=== PATIENT | female | born 1950 | race Caucasian/White ===

== ENCOUNTER 2016-10-19 20:21 | Inpatient (IN) ==
[2016-10-19 22:08] LABS: MANUAL DIFF NEEDED? NO
[2016-10-19 22:17] LABS: BASO% 0.3 % (0.0-0.8); EOS% 1.3 % (0.0-10.0); HEMATOCRIT 35.5 % (37.0-47.0); LYMPH# 0.66 X1000 (1.2-3.4); LYMPH% 8.8 % (20.5-51.1); MCH 28.1 PG (27-31); MCHC 33.8 g/dL (33-37); MCV 83.1 FL (81-99); MONO# 0.64 X1000 (0.11-0.59); MONO% 8.5 % (1.7-9.3); NEUT% 81.1 % (42.2-75.2); PLT 124 X1000 (130-400); RBC 4.27 XMIL (4.2-5.4)
[2016-10-19 22:32] LABS: ALBUMIN 3.4 g/dL (3.5-5.0); CALCIUM 8.6 mg/dL (8.8-10.2); POTASSIUM 3.8 mmol/L (3.5-5.1); TOTAL BILIRUBIN 1.18 mg/dL (0.20-1.00); TOTAL PROTEIN 6.7 g/dL (6.3-8.3)
[2016-10-19] MEDS ORDERED: NS 1,000 ML IV ONE (22:46)
[2016-10-19] MEDS ORDERED: CLINDAMYCIN 600 MG/NS 600 MG/50 ML IVPB IV ONE (22:46)
[2016-10-19] MEDS ORDERED: MOTRIN PO ONE (22:47)
[2016-10-19] MEDS ORDERED: VANCOMYCIN 1 GM/NS 1 GM/250 ML IVPB IV ONE (22:48)
--- NOTE | 2016-10-20 00:40 | HISTORY AND PHYSICAL ---
PRIMARY CARE PHYSICIAN: Dr. Jase Jo. CHIEF COMPLAINT: Left breast rash. HISTORY OF PRESENTING ILLNESS: A 66-year-old female with a history of diabetes mellitus type 2 and hypertension, who presented to the emergency department with a 1-week history of having a rash and redness to her left breast region. She states that she went to her primary care provider, who put her on some antibiotics. However, she did not improve. Her rash started spreading and going to her back. She was evaluated in the ER, and the rash seemed consistent with cellulitis. Due to her failed outpatient treatment, it was thought that she would need hospitalization for further management. At the time of my examination, she denied any headache, fever, chills, chest pain, shortness of breath, hemoptysis, melena, weight changes, but complained of a rash on the left breast. The patient states that she may have had a spider bite to it about a week and a half ago. PAST MEDICAL HISTORY: Includes diabetes mellitus type 2 hypertension. PAST SURGICAL HISTORY: Hysterectomy, back surgery. ALLERGIES: Amoxicillin and oxycodone and hydrocodone. CURRENT MEDICATIONS: Listed in the MAR. SOCIAL HISTORY: She denies any history of smoking, alcohol, or illicit drug use. FAMILY HISTORY: No history of coronary artery disease. REVIEW OF SYSTEMS: Twelve point review of systems is listed as in HPI. Other systems negative. PHYSICAL EXAMINATION: GENERAL: Cooperative, friendly female. She is resting comfortably now. VITAL SIGNS: Temperature 100.2 degrees, pulse 88, respiration 14, blood pressure 137/55. She is saturating 100%. HEENT: Atraumatic, normocephalic. Extraocular movements intact. PERRLA. NECK: Supple. CHEST: Clear to auscultation. BREAST: There is moderate erythema and tenderness on the left breast. CARDIOVASCULAR: Regular rate and rhythm. ABDOMEN: Soft. Positive bowel sounds. EXTREMITIES: No edema. NEUROLOGIC: She is awake, alert, oriented x3. GENITOURINARY: No bladder distention. SKIN: Warm. LABORATORIES AND STUDIES: Sodium 134, potassium 3.8, chloride 98, CO2 is 21, BUN is 15, creatinine is 1.0, glucose is 339. WBC 7.5, hemoglobin 12.1, hematocrit 35.5, platelets 124. ASSESSMENT: A 66-year-old female with a history of hypertension, diabetes mellitus type 2, who presented to our emergency department with a 1-1/2 week history of having left breast rash and tenderness. She was evaluated in the ER, and it was consistent with cellulitis. Due to her failed outpatient treatment, it was thought that she would need hospitalization for further management. 1. Left breast cellulitis. 2. Diabetes mellitus type 2. 3. Hypertension. PLAN: 1. We will admit patient to medical floor with telemetry. 2. We will start patient on IV antibiotics. 3. We will monitor blood glucose and put patient on a sliding scale insulin regimen. 4. We will monitor blood pressure and resume antihypertensive agents. 5. We will put patient on DVT prophylaxis with SCDs. 6. We will continue to follow and reassess. cc: See Andrade MD
[2016-10-20] MEDS: NS 1,000 ML IV SCH ×3 (01:41→15:44)
[2016-10-20] MEDS ORDERED: TYLENOL PO PRN (02:03)
[2016-10-20] MEDS: RESTORIL PO PRN (02:24)
[2016-10-20] MEDS: ULTRAM PO PRN ×3 (03:25→18:34)
[2016-10-20 06:11] LABS: MANUAL DIFF NEEDED? NO
[2016-10-20 06:17] LABS: BASO% 0.1 % (0.0-0.8); EOS# 0.14 X1000 (0.0-0.7); EOS% 2.1 % (0.0-10.0); HEMATOCRIT 32.6 % (37.0-47.0); HEMOGLOBIN 11.2 g/dL (12.0-16.0); LYMPH# 0.98 X1000 (1.2-3.4); LYMPH% 14.5 % (20.5-51.1); MCH 28.4 PG (27-31); MCHC 34.4 g/dL (33-37); MCV 82.7 FL (81-99); MONO# 0.73 X1000 (0.11-0.59); MONO% 10.8 % (1.7-9.3); MPV 10.4 FL (7.4-10.4); NEUT% 72.5 % (42.2-75.2); PLT 120 X1000 (130-400); RBC 3.94 XMIL (4.2-5.4)
[2016-10-20 06:43] LABS: CALCIUM 8.4 mg/dL (8.8-10.2); POTASSIUM 3.8 mmol/L (3.5-5.1)
[2016-10-20] MEDS: HUMULIN R SUBQ SCH ×4 (07:05→21:36)
[2016-10-20] MEDS: CLINDAMYCIN 600 MG/NS 600 MG/50 ML IVPB IV SCH ×2 (10:51→16:58)
[2016-10-20] MEDS ORDERED: ROCEPHIN 1 GM/NS 1 GM/50 ML IVPB IV SCH (13:00)
--- NOTE | 2016-10-20 13:38 | PROGRESS NOTE ---
DATE: 10/20/2016 SUBJECTIVE: Ms. Estrella referred to have been bitten by possibly a spider a couple days ago and subsequently started developing some swelling in the left breast associated with fever. Presented yesterday, was evaluated and admitted due to failed outpatient therapy. OBJECTIVE: Vital signs: Blood pressure is 142/70, pulse of 83, respirations 18 , temperature 98.1. General: Ms. Estrella is a 66-year-old, female. She is in bed, not seemingly distressed. HEENT: Mucosa is pink and moist. Anicteric. Acyanotic. Neck: Supple. Chest: Clear. Cardiovascular: Regular rate and rhythm. Abdomen: Soft. Extremities : No pedal edema. GOLD BUYER: Patient is alert and oriented x4. There is no focal neurological deficit. Psychiatric: Patient has good insight and judgment of what is going on. Breasts: Left breast, there is a main area of skin breakdown at the lateral aspect of the breast, almost under the mid axillary line. The entire left breast is swollen, warm, tender, and there is a fluctuant nodulation at the breast in the of skin breakdown. Is oozing some purulent material. LABORATORY DATA: WBC is 6.76, hemoglobin is 11.3, platelet count of 120. Chemistry is reviewed. Completely unremarkable. Glucose is 168. CURRENT MEDICATIONS: Clindamycin, sliding scale insulin, temazepam. ASSESSMENT: 1. Sepsis secondary to skin and soft tissue infection. 2. Left mastitis with early abscess formation and drainage. 3. Diabetes mellitus. 4. Hypertension. PLAN: 1. The patient is currently on clindamycin which is a very good coverage for both gram-positives and anaerobes. Will add Rocephin for gram-negative coverage, since patient is diabetic we need to cover more broadly. Did not use vancomycin because patient had some renal issues before in 2013. 2. We will consult surgery to evaluate for possible I and D and also consult Infectious Disease to give us some guidance on antibiotics management. 3. The patient will have to be watched extremely carefully because at this age, inflammatory carcinoma is also a diagnostic option. However, taking into consideration the fact that she is suspected to have been bitten by some spider and the fact that she had fever, it all points to an infectious etiology and will address that for now. If surgery does I and D, will send sample for studies including cytology. cc: Martínez Fishman MD MTDD
--- NOTE | 2016-10-20 18:45 | CONSULTATION ---
DATE OF CONSULTATION: 10/20/2016 REQUESTING PHYSICIAN: Martínez Fishman MD. REASON FOR CONSULTATION: Left breast abscess. HISTORY OF PRESENT ILLNESS: A 66-year-old female with a history of diabetes mellitus type 2 presenting to the emergency department with a one week history of having a rash and redness to the left breast, it has extended and spread. She had seen her primary care physician and was started on antibiotics but it did not seem to improve. She was admitted because it was felt that she failed outpatient management for her cellulitis. Given the area and some drainage and fluctuance, I was asked to evaluate the patient for left breast abscess. She at this time has had no imaging but she is significantly tender over her left breast and lateral aspect extending into the axilla, essentially the lateral aspect of the breast has erythema noted to it. She does report she may had a spider bite approximately a week ago. PAST MEDICAL HISTORY: Diabetes mellitus type 2 and hypertension. PAST SURGICAL HISTORY: Hysterectomy and unspecified back surgery. ALLERGIES: Amoxicillin, hydrocodone and oxycodone. CURRENT MEDICATIONS: Reviewed from the MAR. SOCIAL HISTORY: Denies alcohol, tobacco or illicit drugs. FAMILY HISTORY: Reviewed with patient, noncontributory. REVIEW OF SYSTEMS: A full 10 point review of systems was obtained and negative except as specified in HPI. PHYSICAL EXAMINATION: Vital Signs: Patient is currently afebrile. Her vital signs are stable. General Examination: No acute distress. Alert, interactive, female, looks stated age. HEENT: Normocephalic, atraumatic. Pupils equal, round, reactive to light. Mucous membranes moist. Oropharynx benign. Neck: Supple. Trachea midline. Cardiovascular: Regular rate and rhythm. 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 Abdomen: Soft, nontender, nondistended. Extremities: Moves all extremities. Neurologic: Grossly intact. Skin: Erythema as noted above. Vascular: All extremities perfused. LABORATORY: Patient's white blood cell count was 6.7, hematocrit 32, platelet count 120,000. Remainder of labs reviewed. Microbiology from the wound is still pending. ASSESSMENT AND PLAN: A 66-year-old female with left breast abscess. 1. Left breast abscess: At this time we will plan on surgical intervention. We will take the patient to the operating room in the morning. I discussed with patient the risks, benefits and alternatives for surgery. We will obtain consent. She is on antibiotics. We will get cultures from the wound. 2. Multiple medical comorbidities currently being managed by the hospitalist service. 3. I appreciate the consultation. I will continue to follow the patient with you. cc: Rehan Valentine MD
[2016-10-20] MEDS ORDERED: CATAPRES PO PRN (20:19)
[2016-10-20] MEDS: GLUCOPHAGE PO SCH (21:36)
[2016-10-20] MEDS: HYDROXYZINE PO SCH (21:36)
[2016-10-20] MEDS: ZANAFLEX PO SCH (21:37)
[2016-10-21] MEDS: CLINDAMYCIN 600 MG/NS 600 MG/50 ML IVPB IV SCH (01:33)
[2016-10-21] MEDS: NS 1,000 ML IV SCH ×2 (01:33→19:26)
[2016-10-21] MEDS: HYDROXYZINE PO SCH ×4 (01:35→21:39)
[2016-10-21] MEDS: ULTRAM PO PRN ×2 (02:09→11:47)
[2016-10-21] MEDS: ZANAFLEX PO SCH ×3 (03:40→21:39)
[2016-10-21 05:42] LABS: MANUAL DIFF NEEDED? NO
[2016-10-21 05:57] LABS: BASO% 0.2 % (0.0-0.8); EOS# 0.17 X1000 (0.0-0.7); HEMATOCRIT 35.6 % (37.0-47.0); LYMPH% 19.2 % (20.5-51.1); MCH 27.5 PG (27-31); MCHC 33.7 g/dL (33-37); MCV 81.5 FL (81-99); MONO# 0.49 X1000 (0.11-0.59); MONO% 8.5 % (1.7-9.3); MPV 10.4 FL (7.4-10.4); NEUT% 69.1 % (42.2-75.2); PLT 180 X1000 (130-400); RBC 4.37 XMIL (4.2-5.4)
[2016-10-21] MEDS: INVOKANA PO SCH (06:12)
[2016-10-21] MEDS: HUMULIN R SUBQ SCH ×4 (06:13→21:42)
[2016-10-21 06:18] LABS: CALCIUM 8.7 mg/dL (8.8-10.2); POTASSIUM 4.5 mmol/L (3.5-5.1)
--- NOTE | 2016-10-21 06:25 | PROGRESS NOTE ---
DATE: 10/21/2016 SUBJECTIVE: Patient doing okay. Did have some pain through the evening, but otherwise doing okay. OBJECTIVE: Vital Signs: Patient is currently afebrile. Her vital signs are stable. General: No acute distress. Breast: Exam unchanged with erythema noted still to the left breast. Cardiovascular: Regular rate and rhythm. Lungs: Grossly clear. Abdomen: Soft, nontender, nondistended. Extremities: Moves all extremities. Neurologic: Grossly intact. Skin: No signs of jaundice. Vascular: All extremities perfused. LABORATORY: White blood cell count 5. ASSESSMENT/PLAN: A 66-year-old, female with left breast abscess Left breast abscess. At this time, we will plan on surgical intervention this morning. Discussed with her the risks, benefits, alternatives. We will drain this abscess. cc: Rehan Valentine MD
[2016-10-21] MEDS ORDERED: VANCOMYCIN IV PER PHARMACY MISC SCH (08:45)
[2016-10-21] MEDS: NEXIUM PO SCH ×2 (08:52→11:47)
[2016-10-21] MEDS: HYZAAR 50/12.5 MG PO SCH ×2 (08:52→11:46)
[2016-10-21] MEDS: NEURONTIN PO SCH ×3 (08:52→18:20)
[2016-10-21] MEDS: GLUCOPHAGE PO SCH ×3 (08:52→21:40)
[2016-10-21] MEDS: CYMBALTA PO SCH ×2 (08:53→11:45)
[2016-10-21] MEDS ORDERED: DUONEB (A & A) INH ONE (09:50)
[2016-10-21] MEDS ORDERED: VANCOMYCIN 1,450 MG in NS 250 ML IV ONE (10:00)
[2016-10-21] MEDS ORDERED: VANCOMYCIN 1,500 MG in NS 250 ML IV ONE (10:00)
[2016-10-21] MEDS ORDERED: DILAUDID ONE (10:05)
--- NOTE | 2016-10-21 10:26 | CONSULTATION ---
DATE OF CONSULTATION: 10/21/2016 CONCLUSION: The patient has developed a chest abscess, which extends into her left breast. It started with a bite according to the patient on the left side of her chest by some insect, although she did not actually see the insect. A Gram stain taken from the drainage from the abscess shows gram-positive cocci. The first reading of the blood cultures are negative. RECOMMENDATIONS: I have discontinued Rocephin and clindamycin and placed the patient on vancomycin pending culture results. If the abscess turns out to be a an oxacillin-sensitive Staph aureus, then I would switch the patient to Ancef 2 g IV every 8 hours. If the abscess turns out to be methicillin-resistant Staph aureus, then I would just continue with vancomycin. Earlier I discontinued the patient's Rocephin and clindamycin. DISCUSSION: As mentioned above, patient believes approximately 8 days ago she was bitten by some insect in the left chest area. The area has become more erythematous, indurated , tender, painful and has purulent drainage. Gram stain of the drainage shows gram-positive cocci. The patient thinks that since she has been receiving antibiotics she is feeling better. It is my understanding that today she is scheduled to have the abscess drained. Laboratory data thus far show a CBC with a white count of 5740, hemoglobin 12, platelet count 180,000. Creatinine is 1.0. The GFR is 56. Blood cultures are negative. 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 She has had a hysterectomy. PREVIOUS HOSPITALIZATIONS AND OPERATION: She has had 2 labor and deliveries, a hysterectomy, and bilateral carpal tunnel surgery. MEDICAL DISEASES: Positive for diabetes mellitus and hypertension. INFECTIOUS DISEASE HISTORY: Positive for UTI. FAMILY HISTORY: Positive for diabetes mellitus and hyperlipidemia. SOCIAL HISTORY: The patient lives in [place]. She does not smoke cigarettes , drink alcoholic beverages or abuse drugs. She is . She lives with her sister. The sister has a dog as a pet. The patient works in a [employer]. ALLERGIES: The patient states that she is allergic to amoxicillin manifested by oral ulcers. It should be noted that the patient since being in the hospital is on Rocephin and tolerating it well. The patient also has tolerated PO Keflex in the past. REVIEW OF SYSTEMS: Eyes and ears: She denies difficulty hearing or seeing. Neck: No meningismus. Respiratory: No cough or shortness of breath. Chest: See present illness for description of the abscess on the chest wall. GI: No nausea, vomiting, or diarrhea. Genitourinary: No dysuria or flank pain. Bones, joints, muscles: No joint swelling or myalgias. The remainder of the patient's review of systems was completed and was negative. HISTORY OF PRESENT ILLNESS: The patient's lab studies show a CBC with a white count of 5740, hemoglobin 12, platelet count 180,000. Creatinine is 1. GFR is 56. Liver function studies are normal. Gram stain from the patient's abscess showed gram-positive cocci. Blood cultures thus far are sterile. Patient does not smoke cigarettes, drink alcoholic beverages or abuse drugs. HOME MEDICATIONS: 1. Tramadol. 2. Tizanidine. 3. Glucophage/hydrochlorothiazide. 4. Hydroxyzine. 5. Gabapentin. 6. Nexium. 7. Cymbalta. 8. Clindamycin. 9. Invokana. PHYSICAL EXAMINATION: Vital Signs: Temperature is 98.2 degrees, pulse 79, respirations 18, blood pressure 156/64. Patient weighs 160 pounds. General: Generally this is a somewhat ill- appearing, middle-aged female. She is in no acute distress. She does say, however, she has pain in the left chest where the abscess started. Head, eyes, ears, nose, and throat: She can hear my spoken words and see near objects. No drainage noted from the nose or ears. Neck: No meningismus. Lungs: Clear to auscultation. Cardiovascular: Regular heart rate. Chest: The patient has an erythematous, tender, fluctuant area on the left chest which is draining purulent fluid. Abdomen: Soft without masses or tenderness. Neurologic: The patient can move her extremities. There is no tremor. Integument: No rash noted. cc: Lewis Rainey MD MTDD
[2016-10-21] MEDS ORDERED: LR 500 ML ONE (10:27)
--- NOTE | 2016-10-21 12:42 | OPERATIVE NOTE ---
PROCEDURE DATE: 10/21/2016 PREOPERATIVE DIAGNOSIS: Left breast abscess. POSTOPERATIVE DIAGNOSIS: Left breast abscess. PROCEDURE PERFORMED: Incision and drainage of left breast abscess. SURGEON: Rehan Valentine MD WELL LOGGING CAPTAIN MUD ANALYSIS: None. ANESTHESIA: General endotracheal. SPECIMENS: Culture sent. ESTIMATED BLOOD LOSS: 20 mL. HISTORY: The patient is a 66-year-old female, presenting with abscess to her left breast. It was felt the patient would benefit from incision and drainage. The risks, benefits, and alternatives were discussed. All questions were answered. INTRAOPERATIVE FINDINGS: Area of abscess tracked significantly along the lateral aspect of the left breast into the axilla, tracking more than 10 cm. We had to make a counterincision to accommodate the significant amount of purulence. DESCRIPTION OF PROCEDURE: After informed consent was obtained, the patient was brought to the operating theatre, transferred to the operating table, and placed in supine position. General orotracheal anesthesia was then performed without complication. A formal time-out was then performed, confirming patient, date, procedure, and side. All were in agreement. At that time, attention was given to the left breast. After it was prepped and draped, we turned our attention to it. We made a secretion incision over the more medial aspect and encountered purulence, which we sent for culture. We probed the area blood bluntly and broke up all loculations. The area tracked medially, approximately 6 cm, and tracked laterally a significant way. There was also a 2nd area more laterally in the axilla that we also opened up with a cruciate incision to drain it as a counterincision. We encountered purulence there. We irrigated out both sides. There was friable, slightly bleeding tissue noted in the wound. We packed it with 1/2-inch iodoform. We placed a sterile dressing. The patient tolerated the procedure well and was transferred back to the recovery room in stable condition. Postoperatively, we will continue with antibiotics and follow up with culture. cc: Rehan Valentine MD
[2016-10-21] MEDS ORDERED: DIPRIVAN 1% ONE (15:57)
[2016-10-21] MEDS: MORPHINE IV PRN ×2 (16:38→21:40)
--- NOTE | 2016-10-21 17:17 | PROGRESS NOTE ---
DATE: 10/21/2016 SUBJECTIVE: Ms. Estrella feels much better after the surgery. She went to the OR today and they did an I and D of the left breast abscess, at this moment this patient is stable, tolerating p.o. and completely alert and oriented times x3. OBJECTIVE: Vital Signs: Temperature 99.1 degrees, pulse 99, blood pressure 141/52, respiratory rate 16, O2 saturation 99 on room air. HEENT: Head normocephalic. No trauma. PERRLA. Neck: Supple. No JVD. No masses. Central trachea. Chest: She has a clean dressing at the level of the left breast and lateral portion of the thorax, she came from surgery today. No signs of bleed. No pain at this moment. Cardiovascular: RRR. No murmurs. Chest: Clear to auscultation. No wheezing. No rales. Abdomen: Soft, nontender, nondistended. No hepatosplenomegaly. Extremities: No edema. No clubbing. No cyanosis. Neurological: The patient is alert and oriented x3. No focal neurological deficits. LABORATORY: WBC 5.7, hemoglobin 12, hematocrit 35.6, platelet 180,000. Sodium 143, potassium 4.5, chloride 106, bicarbonate 21, BUN 13, creatinine 1, glucose 145, calcium 8.7. ASSESSMENT AND PLAN: 1. Left mastitis with abscess formation status post incision and drainage. This patient went to surgery today and now she is back in the room, she is not complaining of any specific problem at this moment. I adjusted her pain medications. 2. Type 2 diabetes. Will continue with the same management for now. Stable. 3. Hypertension stable. Continue with the same management at this moment. 4. Deep vein thrombosis prophylaxis. I will start this patient on Lovenox. cc: Tristin Guardado MD
[2016-10-21] MEDS ORDERED: TUMS EXTRA STRENGTH PO PRN (21:21)
[2016-10-22] MEDS: NS 1,000 ML IV SCH ×2 (03:33→15:35)
[2016-10-22] MEDS: ZANAFLEX PO SCH ×2 (03:33→14:02)
[2016-10-22] MEDS: HYDROXYZINE PO SCH ×3 (03:33→15:35)
[2016-10-22] MEDS: MORPHINE IV PRN ×4 (03:41→15:35)
[2016-10-22 05:42] LABS: MANUAL DIFF NEEDED? NO
[2016-10-22 06:00] LABS: BASO% 0.2 % (0.0-0.8); EOS# 0.18 X1000 (0.0-0.7); EOS% 4.4 % (0.0-10.0); HEMATOCRIT 32.3 % (37.0-47.0); HEMOGLOBIN 10.8 g/dL (12.0-16.0); IMM GRAN# 0.02 X1000 (0.0-0.04); IMM GRAN% 0.5 % (0.0-0.5); LYMPH# 0.85 X1000 (1.2-3.4); LYMPH% 20.7 % (20.5-51.1); MCH 27.8 PG (27-31); MCHC 33.4 g/dL (33-37); MCV 83.2 FL (81-99); MONO% 9.8 % (1.7-9.3); MPV 10.6 FL (7.4-10.4); NEUT% 64.4 % (42.2-75.2); PLT 151 X1000 (130-400); RBC 3.88 XMIL (4.2-5.4)
[2016-10-22 06:16] LABS: AGAP 14; BUN 11 mg/dL (8-22); CALCIUM 8.6 mg/dL (8.8-10.2); CHLORIDE 102 mmol/L (98-107); COSMO 282; SODIUM 140 mmol/L (136-145); TCO2 24 mmol/L (25-35)
[2016-10-22] MEDS: PERIDEX MT SCH ×2 (06:31→09:19)
--- NOTE | 2016-10-22 06:48 | PROGRESS NOTE ---
DATE: 10/22/2016 SUBJECTIVE: Patient doing okay. No major issues. She tolerated the procedure well. OBJECTIVE: Vital Signs: Patient is currently afebrile. Her vital signs are stable. General Examination: No acute distress. Cardiovascular: Regular rate and rhythm. Lungs: Grossly clear. Chest: The left breast erythema is improved. Packing removed. Wound okay. ASSESSMENT AND PLAN: A 66-year-old, female, status post incision and drainage of left breast abscess. The patient is clinically doing well. We would like to recheck her wound in the next 24 hours. At that point, can be discharged from a surgical point of view. cc: Rehan Valentine MD
[2016-10-22] MEDS: INVOKANA PO SCH (06:51)
[2016-10-22] MEDS: HUMULIN R SUBQ SCH ×3 (06:53→16:17)
[2016-10-22] MEDS: CYMBALTA PO SCH (09:19)
[2016-10-22] MEDS: LOVENOX SUBQ SCH (09:20)
[2016-10-22] MEDS: NEURONTIN PO SCH ×3 (09:24→16:18)
[2016-10-22] MEDS: GLUCOPHAGE PO SCH (09:25)
[2016-10-22] MEDS: HYZAAR 50/12.5 MG PO SCH (09:25)
[2016-10-22] MEDS: NEXIUM PO SCH (09:25)
--- NOTE | 2016-10-22 11:52 | PROGRESS NOTE ---
DATE: 10/22/2016 SUBJECTIVE: This patient states that she is feeling much better. She is still complaining of mild pain at the level of the left breast and left thoracic area where the wound is. She denies nausea, vomiting, diarrhea, constipation. No shortness of breath. No abdominal pain. OBJECTIVE: Vital Signs: Temperature 98.8 degrees, pulse 79, respiratory rate 16, blood pressure 115/50, oxygen saturation 96% on room air. HEENT: Head normocephalic. No trauma. PERRLA. Neck: Supple. No JVD. No masses. Central trachea. Chest: Clear to auscultation. No wheezing. No rales. She has an incision at the level of the left thoracic area close to the breast that was done a couple of days ago to do an I and D. That looks very good, just mild serosanguineous secretion but no pus. Mild tenderness to palpation. Abdomen: Soft, nontender, nondistended. No hepatosplenomegaly. Cardiovascular: RRR. Extremities: No edema. No clubbing. No cyanosis. Neurological Examination: The patient is alert and oriented x3. No focal neurological deficits. Diagnostic Data: Wound/abscess culture positive for MRSA. Laboratory: WBC 4.1, hemoglobin 10.8, hematocrit 32.3, platelets 151,000. Sodium 140, potassium 4, chloride 102, bicarbonate 24, BUN 11, creatinine 0.9, glucose 159, calcium 8.6. ASSESSMENT AND PLAN: 1. Left mastitis with abscess formation, status post incision and drainage. This patient went to surgery yesterday. She is looking good. She is complaining of mild pain at the level of the wound but the pain compared with admission is much better. 2. Type 2 diabetes. Continue with the same management for now. 3. Hypertension, stable. Continue with the same management. 4. Deep venous thrombosis prophylaxis. Continue Lovenox. 5. This patient was evaluated by the surgery department. They will recheck this patient again tomorrow and probably they will sign off. Since this patient has methicillin-resistant Staphylococcus aureus, we need to talk to the infectious disease department to see what is the plan. cc: Tristin Guardado MD
[2016-10-22] MEDS: VANCOMYCIN 1 GM/NS 1 GM/250 ML IVPB IV SCH (12:08)
[2016-10-23] MEDS: PERIDEX MT SCH ×2 (00:32→09:10)
[2016-10-23] MEDS: ZANAFLEX PO SCH ×2 (00:33→08:23)
[2016-10-23] MEDS: RESTORIL PO PRN (00:33)
[2016-10-23] MEDS: HYDROXYZINE PO SCH ×3 (00:34→11:00)
[2016-10-23] MEDS: GLUCOPHAGE PO SCH ×2 (00:34→09:09)
[2016-10-23] MEDS: MORPHINE IV PRN ×2 (00:37→08:11)
[2016-10-23] MEDS: HUMULIN R SUBQ SCH ×3 (00:43→11:34)
[2016-10-23] MEDS: NS 1,000 ML IV SCH (04:56)
[2016-10-23 05:39] LABS: MANUAL DIFF NEEDED? NO
[2016-10-23 05:44] LABS: BASO% 0.5 % (0.0-0.8); EOS# 0.19 X1000 (0.0-0.7); EOS% 4.8 % (0.0-10.0); HEMATOCRIT 32.1 % (37.0-47.0); HEMOGLOBIN 10.7 g/dL (12.0-16.0); IMM GRAN# 0.03 X1000 (0.0-0.04); IMM GRAN% 0.8 % (0.0-0.5); LYMPH# 1.01 X1000 (1.2-3.4); LYMPH% 25.3 % (20.5-51.1); MCH 27.8 PG (27-31); MCHC 33.3 g/dL (33-37); MCV 83.4 FL (81-99); MPV 9.8 FL (7.4-10.4); NEUT% 58.6 % (42.2-75.2); PLT 179 X1000 (130-400); RBC 3.85 XMIL (4.2-5.4)
[2016-10-23 06:30] LABS: AGAP 16; ALBUMIN 3.1 g/dL (3.5-5.0); ALKALINE PHOSPHATASE 82 U/L (32-104); BUN 11 mg/dL (8-22); CALCIUM 8.9 mg/dL (8.8-10.2); CHLORIDE 106 mmol/L (98-107); COSMO 288; GOT 18 U/L (10-30); GPT 14 U/L (10-36); POTASSIUM 3.9 mmol/L (3.5-5.1); SODIUM 143 mmol/L (136-145); TCO2 21 mmol/L (25-35); TOTAL BILIRUBIN 0.61 mg/dL (0.20-1.00)
--- NOTE | 2016-10-23 06:32 | PROGRESS NOTE ---
DATE: 10/23/2016 SUBJECTIVE: Patient doing okay. No major issues. OBJECTIVE: Vital Signs: Patient is currently afebrile. Her vital signs are stable. General: No acute distress. Cardiovascular: Regular rate and rhythm. Lungs: Grossly clear. Left breast: Erythema is improved wound okay. ASSESSMENT/PLAN: A 66-year-old female status post incision and drainage of the left breast abscess. The patient is clinically doing well with incision and drainage. I think she can be discharged home. She is growing Staph species and I suspect she can probably be transitioned over to p.o. antibiotics. It looks like she is sensitive to Bactrim. Likely my recommendation will be to defer to Dr. Rainey. Again patient is likely a candidate for discharge today. cc: Rehan Valentine MD
[2016-10-23 07:41] VITALS: BP 149/73
[2016-10-23] MEDS: INVOKANA PO SCH (08:07)
--- NOTE | 2016-10-23 08:22 | PROGRESS NOTE ---
DATE: 10/23/2016 PRESENT ILLNESS: The patient is status post drainage of a methicillin- resistant Staph aureus chest wall abscess. The drainage was performed by Dr. Valentine. MEDICATIONS: The patient is receiving vancomycin. PHYSICAL EXAMINATION: Vital Signs: Temperature is 98.6 degrees, pulse 93, respirations 12, blood pressure 149/73. General: This is a fairly healthy-appearing elderly female who is in no acute distress. Lungs: Clear to auscultation. Cardiovascular: Regular heart rate. Abdomen: Soft and nontender. Chest: The patient has a large erythematous area on the upper part of the chest extending to the to the patient's side. The area has been drained it is erythematous and tender. There is purulent drainage coming from the wound. LAB AND X-RAY: The CBC today shows a white count of 3990, hemoglobin 10.7, and platelet count 179,000, creatinine 0.9. The GFR is greater than 60. The wound culture is growing methicillin- resistant Staph aureus. ASSESSMENT AND PLAN: Both Dr. Valentine and I feel like the patient could go home today. I have produced a prescription for Septra to take 1 double-strength tablet every 12 hours for 15 days. I have requested that the patient see me in the office in 2 weeks, and then if the wound looks good, we maybe can stop the Septra. COMORBIDITIES: Patient's comorbidity is that she is diabetic. cc: Lewis Rainey MD [facility]
[2016-10-23] MEDS: NEXIUM PO SCH (09:09)
[2016-10-23] MEDS: HYZAAR 50/12.5 MG PO SCH (09:09)
[2016-10-23] MEDS: NEURONTIN PO SCH (09:09)
[2016-10-23] MEDS: LOVENOX SUBQ SCH (09:10)
[2016-10-23] MEDS: CYMBALTA PO SCH (09:10)
[2016-10-23] MEDS ORDERED: XYLOCAINE-MPF 2% ONE (10:11)
[2016-10-23] MEDS ORDERED: LR 1,000 ML ONE (10:12)
[2016-10-23] MEDS: VANCOMYCIN 1 GM/NS 1 GM/250 ML IVPB IV SCH (10:50)
--- NOTE | 2016-10-24 07:34 | DISCHARGE SUMMARY ---
ADMISSION DATE: 10/19/2016 DISCHARGE DATE: 10/23/2016 CONSULTATIONS: 1. Dr. Rehan Valentine with general surgery. 2. Dr. Lewis Rainey with infectious disease. PERTINENT PROCEDURES: Incision and drainage of the left breast abscesses by Dr. Rehan Valentine. DISCHARGE DIAGNOSES: 1. Status post incision and drainage of methicillin-resistant Staphylococcus aureus chest wall abscess 2. Diabetes mellitus type 2. 3. Hypertension HOSPITAL COURSE: Ms. Estrella is a 66-year-old female with a history of diabetes mellitus type 2 and hypertension who presented to the ED with a 1-week history of a rash and redness to her left breast region. She went to her primary care physician, who is Dr. Jo. She was placed on some antibiotics. However, she did not improve. Her rash started to spread. It started going to her back. She was evaluated in the ED. Rash seemed consistent with cellulitis. Due to her failed outpatient treatment, the patient was admitted to the hospital. Started on IV antibiotics with a consult with infectious disease as well as general surgery. The patient underwent an I and D with Dr. Rehan Valentine. Her culture started growing out gram positive cocci. Dr. Rainey switched her antibiotics to vancomycin. Final culture was MRSA. Both Dr. Valentine and Dr. Rainey felt that the patient could go home on p.o. antibiotics with Sept and follow up with Dr. Rainey in 2 weeks. VITAL SIGNS: Temperature is 98.6 degrees, heart rate 93, respirations 12, blood pressure is 149/73, O2 is 99% on room air. DISCHARGE DIET: Diabetic. DISCHARGE MEDICATIONS: 1. Invokana 300mg oral daily 2. Precedex 15 mL b.i.d. 3. Clonidine 0.1 mg p.o. t.i.d. p.r.n. 4. Cymbalta 60 mg p.o. daily. 5. Nexium 40 mg p.o. daily. 6. Neurontin 400 mg p.o. t.i.d. 7. Hydroxyzine pamoate 25 mg p.o. q.6 hours. 8. Hyzaar 100/25 mg tablet 1 each p.o. daily. 9. Glucophage 1000 mg p.o. b.i.d. 10. Septra DS 1 each p.o. b.i.d. 11. Ultram 50 mg p.o. q.6 hours p.r.n. 12. Tizanidine HCL 2 mg p.o. q.8 hours. FOLLOWUP: The patient is being discharged home with p.o. antibiotics. She will follow up with Dr. Valentine on 10/30/[address] Lewis Rainey on 11/06/2016, as well as her primary care physician, Dr. Jase Jo, in 7-10 days. Patient can return to the ED for any worsening of symptoms. Discharge time was 30 minutes. Dictated by YESSY Lindsay for Sole Gonzalez MD cc: Sole Gonzalez MD MTDD
--- NOTE | 2016-11-08 20:42 | PROVIDER DOCUMENTATION ---
This chart was entered by Donna Valdez Scribe, acting as scribe for Haider Oneill PA. HPI-Rash/Wound/ReCheck - General Chief Complaint: Abscess Stated Complaint: LARGE BITE ON LEFT SIDE Time Seen by Provider: 10/19/16 20:43 Source: patient Allergies/Adverse Reactions: Allergies Allergy/AdvReac Type Severity Reaction Status Date / Time amoxicillin [Amoxicillin] Allergy ITCHING Verified 10/20/16 00:44 hydrocodone Allergy ITCHING Verified 10/20/16 00:44 oxycodone [Oxycodone] Allergy ITCHING Verified 10/20/16 00:44 Home Medications: Home Medication List Medication Instructions Recorded Confirmed Last Taken Type Esomeprazole [Nexium] 40 mg PO DAILY 01/20/14 10/20/16 10/19/16 History Gabapentin [Neurontin] 400 mg PO TID 01/20/14 10/20/16 10/19/16 History Losartan/Hydrochlorothiazide 100 mg PO DAILY 01/20/14 10/20/16 10/19/16 History [Hyzaar 100-25 Tablet] Metformin [Glucophage] 1,000 mg PO BID 01/20/14 10/20/16 10/19/16 History Canagliflozin [Invokana] 300 mg PO ACB 11/10/15 10/20/16 10/19/16 History Duloxetine [Cymbalta] 60 mg PO DAILY 11/10/15 10/20/16 10/19/16 History Tizanidine HCl 2 mg PO Q8H 11/10/15 10/20/16 10/19/16 History Tramadol HCl 50 mg PO Q6H PRN PRN 11/10/15 10/20/16 10/19/16 History Clonidine HCl 0.1 mg PO TID PRN 10/20/16 10/20/16 10/19/16 History Hydroxyzine Pamoate 25 mg PO Q6H 10/20/16 10/20/16 10/19/16 History Chlorhexidine Gluconate [Peridex] 15 ml MT BID #1 bottle 10/23/16 Unknown Rx Sulfamethoxazole/Tmp D.s. [Septra 1 each PO BID #30 tablet 10/23/16 Unknown Rx Ds] Tramadol [Ultram] 50 mg PO Q6H PRN PRN #30 tablet 10/23/16 Unknown Rx - History of Present Illness-Dermatology Nature of Presenting Problem: 66 year old F presents to the ED with a cc of a spider bite to left upper lateral chest at midaxillary line. Pt states that she was seen by PCP on Sunday and given antibiotics. Pt states that today she developed a fever of 102 and the redness is spreading. Location: reports: chest Quality: reports: painful Severity: reports: mild Onset/Duration: reports: 1 week ago Timing: reports: still present Identifiable cause?: No Locality of Occurance: Home Similar Symptoms Previously?: No Recently seen or treated by another doctor?: Yes Review of Systems - Adult - REVIEW OF SYSTEMS - ADULT Constitutional: reports: fever. denies: chills Eyes: reports: no symptoms reported Ears, Nose, Mouth & Throat: reports: no symptoms reported Cardiovascular: reports: no symptoms reported Respiratory: reports: no symptoms reported Gastrointestinal: denies: nausea, vomiting Genitourinary: reports: no symptoms reported Musculoskeletal: denies: muscle aches, muscle weakness Integumentary: reports: skin sores/ulcer. denies: skin thickening Neurological: reports: no symptoms reported Psychiatric: reports: no symptoms reported Endocrine: reports: no symptoms reported Hematologic/Lymphatic: reports: no symptoms reported Allergic/Immunologic: reports: no symptoms reported All Other Systems: Reviewed and Negative Past History - Adult - PAST MEDICAL HISTORY-ADULT Review of Records: reports: Nursing Assessment Review, Medications Reviewed Major Childhood Illnesses: reports: denies history Cardiovascular: reports: HTN Gastrointestinal: reports: GERD Musculoskeletal: reports: arthritis, chronic pain, other (fibromyaglia) Endocrine/Immune: reports: Diabetes - PRIOR SURGERIES/PROCEDURES Surgical/Procedure History: reports: cholecystectomy, hysterectomy, other ( carpal tunnel) - IMMUNIZATION STATUS Childhood Immunizations: See Nurse Assessment Flu Vaccine: See Nurse Assessment - SOCIAL HISTORY Smoking: non-smoker Substance Use: none/never Alcohol Use Frequency: never Physical Exam-General - PHYSICAL EXAM-ADULT Initial Vital Signs Reviewed: Yes - CONSTITUTIONAL General Appearance: alert, no apparent distress - RESPIRATORY Respiratory: no respiratory distress - CARDIOVASCULAR Cardiovascular: regular rate, rhythm - SKIN Integumentary: other (large abscess to left breast with moderate induration and cellulitis) - PSYCHIATRIC Psych/Mental Status: normal mood/affect, normal thought content, normal thought process, oriented x 3 Progress - PLAN OF CARE/RESULTS Progress/Plan/Lab Results: Orders Category Date Time Status Saline Loc NOW Care 10/19/16 21:00 Completed BLOOD CULTURE [BLDCUL] Stat Lab 10/19/16 21:20 Completed CBC WITH ELECTRONIC DIFF [HEME] Stat Lab 10/19/16 21:15 Completed COMPREHENSIVE METABOLIC PANEL [CHEM] Stat Lab 10/19/16 21:15 Completed LACTATE, PLASMA [CHEM] Stat Lab 10/19/16 22:05 Completed 0.9% Sodium Chloride Inj [Ns] 1,000 ml Med 10/19/16 22:46 Discontinued IV 999 mls/hr Clindamycin 600 mg/Ns Med 10/19/16 22:46 Discontinued 600 mg in 50 ml IV NOW Ibuprofen [Motrin] Med 10/19/16 22:47 Discontinued 800 mg PO NOW ONE Vancomycin 1 gm/Ns Med 10/19/16 22:48 Discontinued 1 gm in 250 ml IV NOW Result Diagrams: 10/23/16 05:07 10/23/16 05:07 - CONSULTS/PCP/HOSPITALIST Notification #1 *Consult/PCP/Hospitalist*: Dr. Andrade(hospitalist) Time Discussed: 22:54 Consult Disposition: Admit Departure - Departure Date of Disposition Decision: 10/19/16 Time of Disposition Decision: 22:55 DIAGNOSIS: Failure of outpatient treatment Cellulitis Qualifiers: Site of cellulitis: trunk Site of cellulitis of trunk: chest wall Qualified Code(s): L03.313 - Cellulitis of chest wall Disposition: ADMITTED INPATIENT 09 Certified Medical Emergency: Emergent Condition: Stable - Critical Care Note This patient required my direct & personal management of CC.: No Attestation - Physician/ TRACY Attestation Patient care was provided by Advanced Practice Provider:: Yes Advanced Practice Provider:: Haider Oneill Advanced Practice Provider documentation review:: The Mid-level provider documentation, treatment plan and medical decision making was reviewed by the physician who agrees with all treatment and medical decision making by the MLP. This chart was documented by the indicated scribe, (Donna Valdez Scribe) and accurately reflects the services I performed and decisions made by me, Haider Oneill PA, as attested by the provider's signature.
== END 2016-10-23 11:52 | disposition home health service (06) ==
LOC: ED 20:21 → SUATTDRO 10-20 00:48 → 4N 10-20 00:48
PROVIDERS: ATTEND Internal Medicine